=== PATIENT | female | born 1960 | race Caucasian/White ===

== ENCOUNTER → 2018-12-24 | Outpatient (CLI) | payer OTHER ==
[~2018-12-24] MED LIST: AZO MENOPAUSE1 X; CALCIUM & MAGNE1 CAP; EVENING PRIMROSE; MULTIPLE VITAMI1 CAP
== END ==
LOC: MC.RAD 10:15
DX: Z12.31 Encounter for screening mammogram for malignant neoplasm of breast (principal)

== ENCOUNTER 2019-01-26 15:05 | Emergency (ER) | payer OTHER ==
[~2019-01-26] VITALS: Ht 160 cm; Wt 113.6 kg
[2019-01-26 15:12] VITALS: BP 182/88; TEMP 97.8
[2019-01-26] MEDS ORDERED: PREDNISONE20 MG PO (17:11)
[2019-01-26 17:38] VITALS: PULSE 73
== END 2019-01-26 17:38 | disposition home or self-care (01) ==
LOC: COL.ER 15:05
DX: T78.1XXA Other adverse food reactions, not elsewhere classified, initial encounter (principal)
CPT/HCPCS: J1100; J1200

== ENCOUNTER 2019-08-24 14:00 | Emergency (ER) | payer BC ==
[~2019-08-24] VITALS: Ht 160 cm; Wt 115.5 kg
[~2019-08-24 14:00] MED LIST changes: +PREDNISONE20 MG PO
[2019-08-24 14:03] VITALS: TEMP 98.1
[2019-08-24] MEDS ORDERED: TYLENOL 325MG325 MG PO (14:20)
[2019-08-24] MEDS ORDERED: LOVENOX120 MG/0.8 SQ (15:21)
[2019-08-24 16:27] VITALS: BP 118/85; PULSE 79
== END 2019-08-24 16:32 | disposition home or self-care (01) ==
LOC: COL.ER 14:00
DX: I82.402 Acute embolism and thrombosis of unspecified deep veins of left lower extremity (principal); Z79.01 Long term (current) use of anticoagulants

== ENCOUNTER → 2019-12-27 | Outpatient (CLI) | payer BC ==
[~2019-12-27] MED LIST changes: +LOVENOX120 MG/0.8 SQ; +TYLENOL 325MG325 MG PO
== END ==
LOC: MC.RAD 15:23
DX: Z12.31 Encounter for screening mammogram for malignant neoplasm of breast (principal)

== ENCOUNTER → 2020-04-18 | Outpatient (CLI) | payer BC ==
[2020-04-18 10:13] LABS: CREATININE, serum 0.82 (0.52-1.25)
[2020-04-18 15:58] LABS: CALCIUM 9.4 mg/dL (8.4-10.2); POTASSIUM 4.1 mmol/L (3.4-5.0)
== END ==
LOC: COL.LAB 09:27
DX: Z01.812 Encounter for preprocedural laboratory examination (principal)

== ENCOUNTER 2020-06-29 05:06 | Emergency (ER) | payer BC ==
[~2020-06-29] VITALS: Ht 160 cm; Wt 124.5 kg
[2020-06-29 05:16] VITALS: TEMP 97.9
[2020-06-29 05:32] LABS: BASO # 0.1 (0.0-0.2); BASO % 0.8 % (0.0-2.0); EOS # 0.2 (0.0-0.7); EOS % 2.3 % (0-4.0); GRAN # 7.5 (1.4-6.5); HEMOGLOBIN 14.5 g/dl (12.5-16.0); LYMPH # 1.4 (1.2-3.4); LYMPH % 14.5 % (20.0-51.0); MEAN CELL VOLUME 93 fl (80.0-100.0); MEAN CORPUSCULAR HEMOGLOBIN 31 pg (27.0-31.0); MEAN CORPUSCULAR HGB CONC 33 g/dl (33.0-37.0); MEAN PLATELET VOLUME 8.9 fl (7.4-10.4); MONO # 0.6 (0.1-0.6); PLATELET COUNT 225 K/mm3 (130-400); RED BLOOD COUNT 4.75 M/mm3 (4.10-5.30)
[2020-06-29 05:42] LABS: ALANINE AMINOTRANSFERASE 13 U/L (4-34); ALBUMIN 4.2 gm/dL (3.5-5.0); ALKALINE PHOSPHATASE 109 U/L (50-136); ANION GAP 9 mmol/L (7-16); AST,SGOT 24 U/L (15-37); BILIRUBIN,TOTAL 2.1 mg/dL (0.0-1.0); BLOOD UREA NITROGEN 17 mg/dL (7-17); CALCIUM 9.3 mg/dL (8.4-10.2); CARBON DIOXIDE 25 mmol/L (22-30); CHLORIDE 102 mmol/L (98-107); CREATINE KINASE 96 U/L (30-135); CREATININE, serum 0.88 (0.52-1.25); GLUCOSE 130 mg/dL (74-106); INR 1.1 (0.8-3.0); PROTHROMBIN TIME 11.9 SECONDS (9.7-12.8); SODIUM 136 mmol/L (137-145); TOTAL PROTEIN 7.7 gm/dL (6.4-8.2)
[2020-06-29 05:54] LABS: TROPONIN-I < 0.012 ng/mL (0.000-0.035)
[2020-06-29] MEDS ORDERED: PHENERGAN 25 TA25 MG PO (08:43)
[2020-06-29] MEDS ORDERED: ZOFRAN8 MG PO (08:44)
[2020-06-29] MEDS ORDERED: NAPROSYN500 MG PO (08:44)
[2020-06-29 11:50] VITALS: BP 127/75; PULSE 77
== END 2020-06-29 12:00 | disposition short-term general hospital (02) ==
LOC: COL.ER 05:06
PROVIDERS: Emergency Medicine
DX: I80.201 Phlebitis and thrombophlebitis of unspecified deep vessels of right lower extremity (principal); Z86.718 Personal history of other venous thrombosis and embolism; Z86.711 Personal history of pulmonary embolism; Z88.2 Allergy status to sulfonamides; Z88.6 Allergy status to analgesic agent; Z88.1 Allergy status to other antibiotic agents; Z20.822 Contact with and (suspected) exposure to COVID-19
CPT/HCPCS: J1644; Q9967

== ENCOUNTER 2020-08-02 12:09 | Emergency (ER) | payer BC ==
[~2020-08-02] VITALS: Ht 160 cm; Wt 125.0 kg
[~2020-08-02 12:09] MED LIST changes: +NAPROSYN500 MG PO; +PHENERGAN 25 TA25 MG PO; +ZOFRAN8 MG PO
[2020-08-02 12:19] VITALS: TEMP 97
[2020-08-02] MEDS ORDERED: FERROUS SU325 MG/TAB PO (15:04)
[2020-08-02] MEDS ORDERED: PRENATAL TABLET PO (15:04)
[2020-08-02] MEDS ORDERED: ELIQUIS 5MG PO (15:04)
[2020-08-02 15:16] LABS: INR 1.3 (0.8-3.0); PROTHROMBIN TIME 14.6 SECONDS (9.7-12.8)
[2020-08-02 15:17] LABS: BASO # 0.1 (0.0-0.2); BASO % 0.7 % (0.0-2.0); EOS # 0.2 (0.0-0.7); EOS % 2.5 % (0-4.0); GRAN # 6.5 (1.4-6.5); GRAN % 72.8 % (42.2-75.2); HEMATOCRIT 42.1 % (37.0-47.0); HEMOGLOBIN 13.9 g/dl (12.5-16.0); LYMPH # 1.7 (1.2-3.4); LYMPH % 18.9 % (20.0-51.0); MEAN CELL VOLUME 93 fl (80.0-100.0); MEAN CORPUSCULAR HEMOGLOBIN 31 pg (27.0-31.0); MEAN CORPUSCULAR HGB CONC 33 g/dl (33.0-37.0); MEAN PLATELET VOLUME 10.3 fl (7.4-10.4); MONO # 0.4 (0.1-0.6); MONO % 4.9 % (1.7-9.3); RED BLOOD COUNT 4.53 M/mm3 (4.10-5.30); REDCELL DISTRIBUTION WIDTH-CV 13.5 % (11.5-14.5)
[2020-08-02 15:33] LABS: PLATELET COUNT 221 K/mm3 (130-400)
[2020-08-02 15:59] LABS: ALBUMIN 4.1 gm/dL (3.5-5.0); BILIRUBIN,TOTAL 1.9 mg/dL (0.0-1.0); CALCIUM 9.4 mg/dL (8.4-10.2); CREATININE, serum 0.7 (0.52-1.25); POTASSIUM 3.9 mmol/L (3.4-5.0)
[2020-08-02 17:15] VITALS: BP 129/78; PULSE 68
== END 2020-08-02 17:15 | disposition short-term general hospital (02) ==
LOC: COL.ER 12:09
PROVIDERS: Family Medicine
DX: I82.409 Acute embolism and thrombosis of unspecified deep veins of unspecified lower extremity (principal); Z79.01 Long term (current) use of anticoagulants; Z88.2 Allergy status to sulfonamides; Z88.6 Allergy status to analgesic agent; Z88.1 Allergy status to other antibiotic agents
CPT/HCPCS: J1644

== ENCOUNTER → 2021-01-16 | Outpatient (CLI) | payer BC ==
[~2021-01-16] MED LIST changes: +ELIQUIS 5MG PO; +FERROUS SU325 MG/TAB PO; +PRENATAL TABLET PO
== END ==
LOC: MC.RAD 10:37
DX: Z12.31 Encounter for screening mammogram for malignant neoplasm of breast (principal)

== ENCOUNTER → 2021-04-10 | Outpatient (CLI) | payer BC | LOC: COL.RAD 14:24 | DX: C18.7 Malignant neoplasm of sigmoid colon (principal) | CPT/HCPCS: Q9967 ==

== ENCOUNTER → 2021-05-17 | Outpatient (CLI) | payer BC | LOC: COL.RAD 10:17 | DX: E04.2 Nontoxic multinodular goiter (principal); J38.00 Paralysis of vocal cords and larynx, unspecified ==

== ENCOUNTER 2023-05-25 00:48 | Emergency (ER) | payer BC ==
[~2023-05-25] VITALS: Ht 160 cm; Wt 129.5 kg
[2023-05-25 00:54] VITALS: TEMP 97.8
[2023-05-25] MEDS ORDERED: fentaNYL 50 MCG/ML 2 ML VIAL IV ONE ×2 (01:30→02:45)
[2023-05-25] MEDS ORDERED: Mag/Al Hydrox/Simeth Susp 30 ML CUP PO ONE (01:30)
[2023-05-25] MEDS ORDERED: NS 500 ML IV ONE (01:30)
[2023-05-25 01:37] LABS: BASO # 0.1 K/mm3 (0.0-0.2); BASO % 0.9 % (0.0-2.0); EOS # 0.2 K/mm3 (0.0-0.7); EOS % 3.1 % (0.0-4.0); GRAN # 4.9 K/mm3 (1.4-6.5); GRAN % 63.2 % (42.2-75.2); HEMATOCRIT 44.3 % (37.0-47.0); HEMOGLOBIN 14.9 g/dl (12.5-16.0); LYMPH % 25.8 % (20.0-51.0); MEAN CELL VOLUME 92 fl (80.0-100.0); MEAN CORPUSCULAR HEMOGLOBIN 31 pg (27-31); MEAN CORPUSCULAR HGB CONC 34 g/dl (33.0-37.0); MEAN PLATELET VOLUME 9.2 fl (7.4-10.4); MONO # 0.5 K/mm3 (0.1-0.6); MONO % 6.7 % (1.7-9.3); PLATELET COUNT 309 K/mm3 (130-400); RED BLOOD COUNT 4.81 M/mm3 (4.10-5.30); REDCELL DISTRIBUTION WIDTH-CV 12.5 % (11.5-14.5)
[2023-05-25 01:39] LABS: PROTHROMBIN TIME 20.8 SECONDS (9.7-12.8)
[2023-05-25 01:42] LABS: PARTIAL THROMBOPLASTIN TIME 43.5 SECONDS (26.0-37.0)
[2023-05-25 01:52] LABS: ALANINE AMINOTRANSFERASE 15 U/L (0-55); ALBUMIN 3.5 gm/dL (3.4-4.8); ALKALINE PHOSPHATASE 97 U/L (40-150); ANION GAP 12 mmol/L (7-16); AST,SGOT 21 U/L (5-34); BILIRUBIN,TOTAL 1.1 mg/dL (0.2-1.2); BLOOD UREA NITROGEN 12 mg/dL (10-20); CALCIUM 9.7 mg/dL (8.4-10.2); CARBON DIOXIDE 26 mmol/L (23-31); CHLORIDE 104 mmol/L (98-107); CREATININE, serum 0.86 mg/dL (0.57-1.11); GLUCOSE 134 mg/dL (70-99); LIPASE 49 U/L (8-78); POTASSIUM 3.9 mmol/L (3.5-4.5); SODIUM 142 mmol/L (136-145); TOTAL PROTEIN 7.2 gm/dL (6.2-8.1)
[2023-05-25 01:58] LABS: TROPONIN-I < 0.010 ng/mL (0.00-0.033)
[2023-05-25] MEDS ORDERED: Iohexol 350 - 100 ML VIAL IV ONE (03:39)
[2023-05-25] MEDS ORDERED: NS 60 ML IV ONE (03:40)
[2023-05-25] MEDS ORDERED: fentaNYL 50 MCG/ML 2 ML VIAL IV PRN (04:45)
[2023-05-25] MEDS ORDERED: 1/2 NS & 20 mEq KCl 1,000 ML IV ONE (04:45)
[2023-05-25 05:39] LABS: COLLECTION METHOD CLEAN CATCH
[2023-05-25 05:45] LABS: URINE APPEARANCE Clear (CLEAR/HAZY); URINE BLOOD TRACE-INTACT (NEGATIVE); URINE COLOR Yellow (YELLOW); URINE GLUCOSE Negative (NEGATIVE); URINE KETONE Negative (NEGATIVE); URINE NITRATE Negative (NEGATIVE); URINE PROTEIN(semi-quant) Negative (NEGATIVE)
[2023-05-25 05:52] LABS: SQUAMOUS EPITHELIAL 0-2 /hpf (0-10); URINE RBC None Seen /hpf (0-2)
[2023-05-25 10:23] VITALS: BP 123/74; PULSE 86
== END 2023-05-25 10:23 | disposition home or self-care (01) ==
LOC: COL.ER 00:48
PROVIDERS: Internal Medicine
DX: R10.13 Epigastric pain (principal); R10.11 Right upper quadrant pain; E66.01 Morbid (severe) obesity due to excess calories; Z68.43 Body mass index [BMI] 50.0-59.9, adult; Z93.3 Colostomy status; Z85.038 Personal history of other malignant neoplasm of large intestine; Z88.5 Allergy status to narcotic agent
CPT/HCPCS: J3010; J3480; J7040; Q9967

== ENCOUNTER → 2023-11-03 | Outpatient (CLI) | payer BC | LOC: COL.RAD 07-02 07:00 → COL.LAB 10:16 | DX: M79.89 Other specified soft tissue disorders (principal) ==